=== PATIENT | female | born 1955 | race Two or more races ===

== ENCOUNTER 2016-12-02 16:28 | Inpatient (IN) | payer OTHER ==
[2016-12-02 22:40] LABS: SPECIFIC GRAVITY 1.015 (1.001-1.030); URINE BILIRUBIN NEGATIVE (NEGATIVE); URINE BLOOD NEGATIVE (NEGATIVE); URINE GLUCOSE (UA) NEGATIVE (NEGATIVE); URINE LEUKOCYTE ESTERASE NEGATIVE (NEGATIVE); URINE NITRITE NEGATIVE (NEGATIVE); URINE PROTEIN TRACE (NEGATIVE); URINE UROBILINOGEN NORMAL (0-1 mg/dl)
[2016-12-02 22:44] LABS: URINE APPEARANCE CLEAR; URINE COLOR AMBER
[2016-12-02] MEDS ORDERED: KETOROLAC TROMETHAMINE 60 MG/2 ML VIAL ONE (23:25)
[2016-12-03] MEDS ORDERED: SODIUM CHLORIDE 0.9% 500 ML ONE (00:10)
[2016-12-03] MEDS ORDERED: ACETAMINOPHEN 500 MG TABLET ONE (01:07)
[2016-12-03 01:13] LABS: ABSOLUTE NEUTROPHIL COUNT 3.5 K/mm3 (1.8-7.7); BASO % 0.4 % (0.2-1.0); HEMATOCRIT 21.3 % (37.0-47.0); IMM NEUT% 0.7 % (0-1); LYMPH # 0.8 (1.0-4.8); LYMPH % 17.2 % (15-45); MEAN CORPUSCULAR HEMOGLOBIN 22.2 pg (27.0-31.0); MEAN CORPUSCULAR HGB CONC 29.6 g/dl (33.0-37.0); MONO # 0.2 (0.0-0.8); MONO % 3.5 % (4-12); NEUT % 78.2 % (43-75); PLATELET COUNT 200 K/mm3 (130-400); RED CELL DISTRIBUTION WIDTH 15.2 % (11.5-14.5)
[2016-12-03 01:15] LABS: HEMOGLOBIN 6.3 gm/l (12.0-16.0)
[2016-12-03 01:21] LABS: ALB/GLOB RATIO 0.7 (>1.0); CALCIUM 8.6 mg/dL (8.6-10.3)
[2016-12-03 02:08] LABS: ANISOCYTOSIS 1+; HYPOCHROMIA 2+; PLATELET ESTIMATE NORMAL (NORMAL)
[2016-12-03] MEDS ORDERED: IOPAMIDOL 370 (76%) IV.SOLN 150 ML IV ONE (02:44)
[2016-12-03] MEDS ORDERED: TAZOBACTAM IV ONE (02:51)
[2016-12-03] MEDS ORDERED: PIPERACILLIN IV ONE (02:51)
[2016-12-03] MEDS ORDERED: SODIUM CHLORIDE 0.9% 100 ML IV PRN (04:09)
[2016-12-03] MEDS ORDERED: MENTHOL/CETYLPYRD 1 EACH LOZENGE PO PRN (04:09)
[2016-12-03] MEDS ORDERED: BISACODYL 10 MG SUP PR PRN (04:09)
[2016-12-03] MEDS ORDERED: BISACODYL 5 MG TABLET.EC PO PRN (04:09)
[2016-12-03] MEDS ORDERED: BLISTEX LIPSTICK 1 EACH TP PRN (04:09)
[2016-12-03] MEDS ORDERED: SODIUM CHLORIDE 0.9% 500 ML IV PRN (04:09)
[2016-12-03 04:13] VITALS: BMI 52.1
[2016-12-03] MEDS ORDERED: BLOOD Y PLUMSET W/CASSETTE ONE ×2 (04:33→08:22)
[2016-12-03] MEDS ORDERED: PANTOPRAZOLE SODIUM 40 MG VIAL IV SCH (05:00)
[2016-12-03] MEDS: ONDANSETRON 4 MG/2ML 2 ML VIAL IV PRN ×2 (05:09→15:20)
--- NOTE | 2016-12-03 08:01 | RAD ---
EXAMINATION : CHEST-AP BEDSIDE HISTORY: Weakness. COMPARISONS: 06/09/2014 FINDINGS: There is borderline cardiomegaly. After chronic change of the thoracic aorta is noted. There is mild ectasia. Lungs are clear. No gross effusion is identified. Spondylosis changes of the thoracic spine are noted. A right approach vascular catheter is evident. The distal aspect overlies the superior vena cava shadow. There is no visible pneumothorax. IMPRESSION: No acute cardiopulmonary process is appreciated. There is cardiomegaly without evidence of congestive failure or gross infiltrate.
[2016-12-03] MEDS: DOCUSATE SODIUM 100 MG CAPSULE PO SCH ×2 (09:18→20:50)
--- NOTE | 2016-12-03 10:00 | CT ---
Examination: Noncontrast CT scan of the lumbar spine. Clinical indication: Back pain. Comparisons: None Technique: A [employer] [address] scanner was utilized. Axial images were acquired from the T12 vertebra to S2. Stacked 3 mm axial images were reviewed. Sagittal and coronal reconstructed images were acquired and reviewed as well. Additional 3 mm reconstructed images were acquired with additional post processing angled to the plane of the intervertebral discs of the lumbar spine. Findings: Examination is resolution diminished due to patient body habitus and motion artifact. Subtle abnormalities may not be demonstrated optimally. If central stenosis or neural encroachment remains a concern, MRI examination may be beneficial. Sagittal reconstructed images reveal: There is grossly normal alignment of the lumbar vertebra. The vertebral body heights are maintained. Moderate facet arthropathy involves the lower lumbar segments and is most pronounced at L4-5 and L5-S1. Axial images reveal: At T12-L1: There is a disc bulge suggested at this segment. Facet hypertrophy is noted. No gross encroachment is appreciated. At L1-L2: There is a disc bulge suggested at this segment. Central stenosis cannot be excluded. Neural encroachment is also suspected bilaterally. At L2-L3: There is facet and ligamentum flavum hypertrophy at this level with a diffuse disc bulge suggested. Central stenosis is suspected there is possible left neural encroachment. At L3-L4: There is facet and ligament flavum hypertrophy at this level. There is a diffuse disc bulge with suspected central stenosis. Bilateral neural encroachment is suspected. At L4-L5: There is moderate facet hypertrophy at this segment with a diffuse disc bulge. Central stenosis is suspected. Bilateral neural encroachment is also suspected as well. At L5-S1: Moderate facet arthropathy involves this level. There is possible left neural encroachment. Central stenosis cannot be excluded. Paraspinous soft tissues: After chronic plaquing of the abdominal aorta is noted. No gross lesions are identified in the visualized lung bases. IMPRESSION: 1. Resolution limited examination due to technical and body habitus factors as described above. There are multiple levels of suspected stenosis and neural encroachment. If warranted, MRI examination should be considered. There is considerable facet arthropathy at the lower lumbar segments as well. 2. Atherosclerosis.
[2016-12-03] MEDS: ACETAMINOPHEN 325 MG TABLET PO PRN ×2 (11:29→20:52)
[2016-12-03] MEDS: PANTOPRAZOLE SODIUM 40 MG VIAL IV SCH (11:29)
[2016-12-03] MEDS ORDERED: LACTATED RINGERS 500 ML IV ONE (11:58)
[2016-12-03] MEDS ORDERED: PUMP TUBING ONE (11:58)
[2016-12-03] MEDS ORDERED: LACTATED RINGERS 1,000 ML IV SCH (12:00)
--- NOTE | 2016-12-03 12:51 | CT ---
EXAMINATION: Contrast enhanced CT scan of the abdomen and pelvis. CLINICAL INDICATION: Patient with a history of colonic fistula and fever. COMPARISON: Prior examination dated 04/26/2016 TECHNIQUE: Oral contrast: Administered Following uneventful administration of 125 mL of Isovue 370, intravenously axial images were acquired from just above the domes of the diaphragm to the iliac crest. A CT scan of the pelvis was also obtained from the iliac crest to the initial tuberosities. Stacked axial, sagittal, and coronal images were reviewed. Findings: Abdomen CT: (Contrast-enhanced): There is mild to moderate bibasilar atelectasis. No consolidation or mass is identified. There is no pleural effusion. The liver exhibits diminished attenuation throughout compatible with fatty infiltration. No discrete lesion is identified. Hemostatic clips closely abutting the capsular margin of the right lobe of liver within the transversalis fascia is noted. Patient status post cholecystectomy. There is no evidence of biliary obstruction. The spleen size and attenuation are within normal limits. The pancreas is normal in size and contours. No inflammatory stranding is identified. The pancreatic duct is unremarkable. The adrenals are unremarkable. The kidneys are without mass or hydronephrosis. There is a retroaortic left renal vein. Mild atherosclerotic plaquing of the abdominal aorta is present. There is no aneurysmal dilatation. The stomach is unremarkable. The visualized segments of small and large bowel are within normal limits. Spondylosis changes of the lumbar spine are noted. No gross osteolytic or blastic lesions are identified. Pelvic CT: (Contrast -enhanced): Disruption of the anterior abdominal/pelvic soft tissues is again noted. Bowel contrast is again noted within the ventral ostomy. There is no evidence of bowel obstruction. No incarceration is identified. The uterus is unremarkable. There are no adnexal masses. The bladder contours are within normal limits. No distal ureteral dilatation is identified. No adenopathy is appreciated. After chronic changes of the iliac vessels are noted. There is no aneurysmal dilatation. No free air or free fluid is identified. No colonic wall thickening or irregularity is detected. Spondylosis changes lumbar spine are noted. There is moderate facet arthropathy at multiple segments. IMPRESSION: Resolution limited examination due to patient body habitus. 1. Stable findings of what appears to be a midline ventral ostomy. There is adjacent soft tissue changes suggesting healing by secondary intent. There is no evidence of bowel obstruction. No discrete fistula is appreciated. 2. Bibasilar atelectasis. 3. Fatty filtration liver. 4. Prior cholecystectomy. 5. Atherosclerosis. 6. Retroaortic left renal vein. 7. Spondylosis changes lumbar spine.
[2016-12-03] MEDS: ENOXAPARIN SODIUM 40 MG/0.4 ML SYRINGE SUB-Q SCH (13:14)
[2016-12-03 14:26] LABS: ABSOLUTE NEUTROPHIL COUNT 2.7 K/mm3 (1.8-7.7); BASO % 0.6 % (0.2-1.0); HEMATOCRIT 28.7 % (37.0-47.0); HEMOGLOBIN 8.7 gm/l (12.0-16.0); IMM NEUT% 0.9 % (0-1); LYMPH # 0.6 (1.0-4.8); LYMPH % 17.5 % (15-45); MEAN CELL VOLUME 77.6 fl (81.0-99.0); MEAN CORPUSCULAR HEMOGLOBIN 23.5 pg (27.0-31.0); MEAN CORPUSCULAR HGB CONC 30.3 g/dl (33.0-37.0); MEAN PLATELET VOLUME 10.1 fl (7.4-10.4); MONO % 0.9 % (4-12); NEUT % 80.1 % (43-75); PLATELET COUNT 175 K/mm3 (130-400); RED CELL DISTRIBUTION WIDTH 15.9 % (11.5-14.5)
--- NOTE | 2016-12-03 14:43 | HP ---
FLAKO MENDOZA [id number] DATE OF ADMISSION: December 03, 2016 CHIEF COMPLAINT: Low back pain. HISTORY OF PRESENT ILLNESS: The patient is a 61-year-old female with a complex medical history who presented to the [facility] Emergency Department with complaints of severe low back pain symptoms. She has had similar back pain problems in the past but it has been many months since she has had problems. She also complained of feeling shaky in the emergency department and after she was treated for back pain and about to be discharged, she was found to have a fever up to 101 degrees which prompted further workup. She was found to be anemic with a hemoglobin of 6.3 associated with microcytosis. With the unexplained fever and microcytic anemia, she was referred to the hospitalist service for observation. Cultures of her blood were obtained from peripheral venous source and another blood culture was drawn from a tunneling Portacath which she has had in the right subclavian for about four months now. REVIEW OF SYSTEMS: On review of systems, she has not noticed any fever or chills at home. She denies any recent upper respiratory symptoms. She has had no cough, dyspnea, wheezing, chest pain or palpitations. No lower extremity edema. She has chronic abdominal pain. She has a chronic decreased appetite. She has had no vomiting and no diarrhea or constipation. 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 She denies any headaches, fainting, blackouts or seizures. She denies any urinary complaints. Review of systems is otherwise negative. PAST MEDICAL HISTORY: Is very complicated. 1. She has a history of diabetes on oral therapy. 2. She has a history of hypertension on antihypertensive therapy. 3. She has never had any prior history of any coronary artery disease. 4. She has had a history of recent prolonged hospitalization at [facility] for a complicated ventral hernia with an enterocutaneous fistula. She left [facility] some time in October. 5. She is on home total parenteral nutrition therapy via a tunneling Portacath in her right subclavian. 6. She has morbid obesity but no history of sleep apnea. 7. She has had hyperlipidemia on statin therapy but no history of coronary artery disease. 8. She has a remote history of a pulmonary embolism in March of 2003. She is no longer on any anticoagulant therapy. PAST SURGICAL HISTORY: Is significant for: 1. Recurrent incisional hernia. She originally had an incarcerated inguinal hernia repair done at [facility] in June of the year 1999. Prior to that she had had an umbilical hernia repair done approximately 1994. 2. In February of 2003, she presented with recurrent incisional hernia which was found to be massive and was repaired at that time with a 25 x 32 cm mesh. 3. Then in February of 2015 she was hospitalized for an incarcerated recurrent incisional hernia with bowel obstruction. She had removal of the mesh performed and lysis of adhesions and placement of a wound VAC. 4. She also had an open cholecystectomy performed at the same time by Dr. Ortiz. The surgery never completely healed properly, and she had persistent hernia defect despite the surgery done here in February of 2015. 5. She subsequently underwent a ventral hernia repair again. This time at [facility] in July,. She was then readmitted between July 19, 2016 and November 05, 2016 with complications of an enterocutaneous fistula. She was discharged with complex wound management and home total parenteral nutrition which she has been receiving and had skin grafts also placed to heal the wound defect. She had a small bowel resection with primary anastomosis along with an appendectomy sometime during her prolonged stay at [facility]. Awaiting discharge summary at this time. 6. She had a Portacath placed in the right subclavian some time during that stay as well for the home total parental nutrition. ALLERGIES: NO KNOWN DRUG ALLERGIES. CURRENT MEDICATIONS: Obtained from [facility] include: 1. Cozaar 50 mg daily. 2. Lipitor 20 mg daily. 3. Oxycodone 5 to 10 mg every four hours. She generally takes two or less a day. 4. Metformin 850 mg twice daily with meals. 5. Toprol XL 100 mg twice daily. FAMILY HISTORY: Remarkable for a mother who at childbirth. Her father in an accident. SOCIAL HISTORY: She has never used tobacco. Denies alcohol use. She is . She has three children. She is receiving Home Health services for her total parental nutrition and wound care. Her primary care provider is [facility]. PHYSICAL EXAMINATION: VITAL SIGNS: Her vitals showed initially a temperature up to 101.1, pulse 107, blood pressure 105/46, respirations 16, oxygen saturation 99% on 2 liters. Body mass index is 52. Her weight is 137.8 kilograms. GENERAL: This is a morbidly obese female in no acute distress. HEENT: Exam is unremarkable. NECK: Is supple without lymphadenopathy or thyromegaly. CHEST: Lungs are clear to auscultation bilaterally. CARDIOVASCULAR: Exam reveals a regular tachycardia without a murmur. ABDOMEN: Is obese, soft, nontender, nondistended with positive bowel sounds. She has a midline wound covered with sterile dressing and an ostomy appliance at the midline for her fistula. Active bowel sounds are noted. No rebound or guarding. No induration is present and no erythema. EXTREMITIES: Lower extremities show no peripheral edema. Rudy's sign is negative bilaterally. SKIN: Warm, dry and intact. DIAGNOSTIC IMAGING STUDIES: Included: 1. Chest x-ray showing no acute cardiopulmonary abnormality. 2. She had an x-ray of the lumbar spine which showed multiple levels of suspected stenosis and neural encroachment but a limited exam due to her body habitus. 3. No abdominal imaging was performed in the emergency department. LABORATORY STUDIES: Showed a CBC with a white count of 4.5, hemoglobin of 6.3, hematocrit 21.3, mean corpuscular volume 75, platelet count 200,000. Lactate initially was 1.5. Chemistry profile showed a sodium of 138, potassium 4.5, carbon dioxide 25, BUN 34, creatinine 1.3, glucose 126. Liver function tests are normal, albumin is 3.0, globulin 4.1, lipase is 17. Urinalysis was unremarkable. ASSESSMENT: 1. Patient has a fever of unknown origin. 2. She has a significant anemia consistent with chronic blood loss consistent with iron deficiency. 3. She has low back pain due to degenerative disc disease. 4. She has a chronic enterocutaneous fistula and a chronic indwelling Portacath as potential sources for infection. 5. She has morbid obesity which complicates her care. 6. Diabetes which complicates her care. 7. She has a history of chronic essential hypertension, however her blood pressure at this time are low. 8. She has mild tachycardia. PLAN: 1. She is placed under observation. 2. She will be transfused two units of packed red blood cells. 3. Cultures of the blood have been obtained times two. 4. I am holding off empiric antibiotic treatment until we can better identify a potential source for infection. 5. If she is having persistent fevers, we may have to arrange for removal of her Portacath and culturing of the tip. 6. I plan to do a CT of the abdomen and pelvis with contrast to better search for potential sources of fever. 7. She will be gently hydrated. 8. I plan to continue her total parenteral nutrition every evening. She usually starts it from 9 until 1 in the afternoon, and her will be bring that in today. 9. We will try and get records from [facility]. 10. Should she show any significant intraabdominal pathology, we may need to transfer her back to [facility]. 11. For her diabetes, she will be managed with sliding scale NovoLog. 12. Venous thromboembolism risk is low considering her observation status but moderate considering her prior history of a pulmonary embolism, so I am going to put her on prophylactic doses of Lovenox. 13. Further treatment and recommendations will depend on her hospital course. cc: Essie Falcon, [facility]
[2016-12-03] MEDS: Heparin Sodium Flush 50 unit/5 ml syringe IV PRN (20:49)
[2016-12-03] MEDS ORDERED: [UNRECOGNIZED DRUG - NUTRITION] IV SCH (21:00)
[2016-12-03] MEDS: OXYCODONE HCL 5 MG TABLET PO PRN (23:26)
[2016-12-04] MEDS ORDERED: CEFTRIAXONE 1 GRAM DUPLEX 50 ML IV ONE (03:32)
[2016-12-04] MEDS: CEFTRIAXONE 1 GRAM DUPLEX 1 G in Premix (D5W) 50 ml 1 EACH IV SCH (03:39)
[2016-12-04 05:38] LABS: ABSOLUTE NEUTROPHIL COUNT 2.3 K/mm3 (1.8-7.7); BASO % 0.4 % (0.2-1.0); HEMATOCRIT 23.6 % (37.0-47.0); HEMOGLOBIN 7.1 gm/l (12.0-16.0); IMM NEUT% 0.7 % (0-1); LYMPH # 0.5 (1.0-4.8); LYMPH % 17.9 % (15-45); MEAN CELL VOLUME 78.7 fl (81.0-99.0); MEAN CORPUSCULAR HEMOGLOBIN 23.7 pg (27.0-31.0); MEAN CORPUSCULAR HGB CONC 30.1 g/dl (33.0-37.0); MEAN PLATELET VOLUME 10.2 fl (7.4-10.4); MONO % 0.7 % (4-12); NEUT % 80.3 % (43-75); PLATELET COUNT 135 K/mm3 (130-400); RED CELL DISTRIBUTION WIDTH 15.9 % (11.5-14.5)
[2016-12-04 05:56] LABS: CALCIUM 7.9 mg/dL (8.6-10.3)
[2016-12-04 07:11] LABS: BAND 14 % (0-10); BASOPHIL 1 % (0-1); EOSINOPHIL 0 % (1-3); LYMPHOCYTE 17 % (15-45); MONOCYTE 0 % (4-12); NEUTROPHILS 68 % (43-75); PLATELET ESTIMATE NORMAL (NORMAL); TOTAL CELLS COUNTED 100
[2016-12-04] MEDS: DOCUSATE SODIUM 100 MG CAPSULE PO SCH ×2 (09:40→23:50)
[2016-12-04] MEDS: MAGNESIUM HYDROXIDE 30 ML UDCUP PO PRN (09:40)
[2016-12-04] MEDS ORDERED: SODIUM CHLORIDE 0.9% 500 ML IV PRN (12:13)
[2016-12-04] MEDS: INSULIN ASPART (DOSE) 100 UNITS/1 ML SUB-Q PRN (12:19)
--- NOTE | 2016-12-04 12:36 | PDOC43 ---
- Subjective Chief Complaint: Fever Patient c/o some headache. Otherwise, is feeling a little bit better. She reports prior removal of IV cath x 2 in the past due to infection, having seen Dr Zhou. - Objective Vital Signs Temperature 99.1 F 12/04/16 07:33 Pulse Rate 104 12/04/16 07:33 Respiratory Rate 26 12/04/16 07:33 Blood Pressure 107/57 12/04/16 07:33 O2 Saturation by Pulse Oximetry 95 12/04/16 07:33 Oxygen Delivery Method Room Air Oxygen Flow Rate 0 Vital Signs Last 12 Hours Temp Pulse Resp BP Pulse Ox 12/04/16 07:33 99.1 F 104 26 107/57 95 12/04/16 07:30 26 95 12/04/16 03:52 22 12/04/16 03:46 100.1 F 113 22 104/59 92 12/04/16 03:45 99 12/04/16 00:15 101.9 F 115 20 98 Intake and Output 12/02/16 12/03/16 12/04/16 23:59 23:59 23:59 Intake Total 4234 275 Output Total 2630 1225 Balance 1604 -950 General: Alert, Cooperative, No Acute Distress Lungs: Clear to Auscultation Bilaterally, Normal Air Movement Cardiovascular: Regular Rate and Rhythm Abdomen: Soft, Other (large ostomy bag, draining from enterocutaneous fistula.) Extremities: No Edema Cath in R upper shoulder. Pt points to R arm and R side of neck as prior (PICC? ) sites. Laboratory 12/04/16 05:15 12/04/16 05:15 12/04/16 12/04/16 12/03/16 07:30 05:15 20:45 RBC 3.00 L MCV 78.7 L MCH 23.7 L MCHC 30.1 L RDW 15.9 H BUN 31 H Estimated GFR 38 L POC Capillary Glucose 144 H 109 H Calcium 7.9 L 12/03/16 12/03/16 16:20 14:15 RBC 3.70 L MCV 77.6 L MCH 23.5 L MCHC 30.3 L RDW 15.9 H BUN Estimated GFR POC Capillary Glucose 122 H Calcium Current Medications: Current meds reviewed in EMR. Active Medications Endocrine Insulin Aspart (Novolog (Dose)) 0 units SUB-Q WM/BEDTIME PRN; Protocol PRN Reason: Blood Sugar > FEN Total Parenteral Nutrition (Total Parenteral) 2,240 mls @ 140 mls/hr IV DAILY@ 2100 [place] PRN Reason: Per Protocol Last Admin: 12/03/16 22:14 Dose: 140 mls/hr Sodium Chloride (Sodium Chloride 0.9%) 500 mls @ 25 mls/hr IV .Q20H PRN PRN Reason: Blood Transfusion Last Admin: 12/03/16 04:39 Dose: 25 mls/hr Sodium Chloride (Sodium Chloride 0.9%) 100 mls @ 25 mls/hr IV PRN PRN PRN Reason: Flush GI Pantoprazole Sodium (Protonix) 40 mg IV DAILY@1200 [place] Last Admin: 12/03/16 11:29 Dose: 40 mg Docusate Sodium (Colace) 100 mg PO BID [facility] Last Admin: 12/04/16 09:40 Dose: 100 mg ID Ceftriaxone Sodium/Dextrose 1 (g/ Premix (D5W) 50 ml) 50 mls @ 100 mls/hr IV DAILY@0600 [facility] Last Admin: 12/04/16 03:39 Dose: 100 mls/hr Pain Oxycodone HCl (Roxicodone) 5 - 10 mg PO Q3H PRN PRN Reason: Pain Last Admin: 12/03/16 23:26 Dose: 10 mg PRN Acetaminophen (Tylenol) 650 mg PO Q6H PRN PRN Reason: Pain or Temperature > 100.5 F Last Admin: 12/03/16 20:52 Dose: 650 mg Benzocaine/Menthol (Cepacol) 1 each PO PRN PRN PRN Reason: Sore Throat Bisacodyl (Dulcolax) 10 mg [place] DAILY PRN PRN Reason: Constipation Bisacodyl (Dulcolax) 5 mg PO DAILY PRN PRN Reason: Constipation Magnesium Hydroxide (Milk Of Magnesia) 30 ml PO DAILY PRN PRN Reason: Constipation Last Admin: 12/04/16 09:40 Dose: 30 ml Ondansetron HCl (Zofran) 4 mg IV Q4H PRN PRN Reason: Nausea/Vomiting Last Admin: 12/03/16 15:20 Dose: 4 mg Petrolatum/Paraffin/Mineral Oil (Blistex) 1 each TP PRN PRN PRN Reason: Dry and/or chapped lips VTE Enoxaparin Sodium (Lovenox) 40 mg SUB-Q Q24H [facility] Last Admin: 12/03/16 13:14 Dose: 40 mg - Problems: Assessment/Plan (1) Fever Qualifiers: Fever type: due to other condition Qualifier Code: (R50.81) Fever presenting with conditions classified elsewhere Status: AcuteAssessment/Plan : Fever with Sepsis, organism appears to be GNR obtained on blood culture, possibly from portacath. Blood culture + from Cath, neg so far from peripheral source. Started on Rocephin 12/04 (2) Diabetes Qualifiers: Diabetes mellitus type: type 2 Diabetes mellitus complication status: with hyperglycemia Status: AcuteAssessment/Plan: BG 102-144. Continue tx, on SS, CBGs. (3) Anemia Status: AcuteAssessment/Plan: Marked microcytic anemia, low WBC noted, suspect acute on chronic illness. S/P PRBC x 2 units, plan add'l unit today Labs: Laboratory Tests 12/04/16 05:15 WBC 2.9 L Hgb 7.1 L MCV 78.7 L Plt Count 135 Band Neutrophils % 14 H (4) Enterocutaneous fistula Status: AcuteAssessment/Plan: Contributing to electrolytes, on TPN. (5) Obesity Qualifiers: Obesity type: unspecified obesity type Obesity severity: morbid Qualifier Code: (E66.01) Morbid (severe) obesity due to excess calories Status: ChronicAssessment/Plan: BMI 53 (6) Acute kidney injury superimposed on chronic kidney disease Status: AcuteAssessment/Plan: Acute kidney injury from sepsis, on CKD 3 from DM. Continue IVF. (7) Low back pain Qualifiers: Chronicity: chronic Back pain laterality: unspecified Sciatica presence: unspecified whether sciatica present Qualifier Code: (M54.5) Low back pain Status: AcuteAssessment/Plan: Chronic hx. VTE Prophylaxis: Lovenox Disposition: Will need to check with DR Zhou at [facility] about further care rec's. addendum: Spoke with Dr Raphael at [facility] Suggested removal of cath Suggested consider replacement after a 1-3 days to clear Not necessarily needing to transfer at this time. Spoke with Dr Boyle, will see her later today about removal, consider for PICC line placement late this week Plan stop TPN for now, will given (increased) fluid replacement - D5 1/2NS with 20 mEq at 200 ml/hr
[2016-12-04] MEDS ORDERED: LACTULOSE 20 G/30 ML UDCUP PO PRN (12:54)
[2016-12-04] MEDS: PANTOPRAZOLE SODIUM 40 MG VIAL IV SCH (13:09)
[2016-12-04] MEDS: ENOXAPARIN SODIUM 40 MG/0.4 ML SYRINGE SUB-Q SCH (13:09)
[2016-12-04] MEDS: Heparin Sodium Flush 50 unit/5 ml syringe IV PRN (13:19)
[2016-12-04] MEDS: IBUPROFEN 200 MG TABLET PO PRN ×2 (13:31→23:42)
[2016-12-04] MEDS ORDERED: BLOOD Y PLUMSET W/CASSETTE ONE (13:34)
[2016-12-04] MEDS: ACETAMINOPHEN 325 MG TABLET PO PRN (15:07)
[2016-12-04] MEDS ORDERED: PUMP TUBING ONE (16:58)
[2016-12-04] MEDS: D5 1/2NS with 20 mEq KCL 1,000 ML IV SCH ×3 (17:07→23:37)
[2016-12-04] MEDS: MULTIVITAMINS 10 ML in SODIUM CHLORIDE 0.9% 1,000 ML IV SCH (17:09)
[2016-12-04] MEDS ORDERED: LIDOCAINE 1% (PRES FREE) 30 ML VIAL ONE (18:14)
[2016-12-04] MEDS ORDERED: BUPIVACAINE 0.5% W/EPI SDV 30 ML VIAL ONE (18:14)
[2016-12-04 18:33] LABS: INR 1.37; PROTHROMBIN TIME 14.6 SECONDS (9.3-11.4)
[2016-12-04] MEDS ORDERED: MIDAZOLAM HCL 5 MG/5 ML VIAL ONE (19:03)
[2016-12-04] MEDS ORDERED: PROPOFOL 20 ML IV ONE (19:41)
[2016-12-04] MEDS ORDERED: FAMOTIDINE 10 MG/ML 2ML VIAL ONE (19:41)
[2016-12-04] MEDS ORDERED: METOCLOPRAMIDE HCL 5 MG/ML 2ML VIAL ONE (19:41)
--- NOTE | 2016-12-04 20:07 | PCMON ---
Date of Procedure: 12/04/16 Start Time: 7:20 pm Preoperative Diagnosis: 1. Infection tunnelled central line Postoperative Diagnosis: 1. same Surgeon: Walt Boyle MD Assist:none Anesthesia: Procedural sedation with local anaesthetic Condition: Infected central line Complications: none Estimated Blood Loss: 10 mLs Specimens: Central line to pathology for identification and culture Findings: Infected central line - tunnelled line Detailed Operative Procedure: The site was prepared and local anesthetic was infiltrated in the region of the central line. The cuff was identified along the line and the subcutaneous tissue was gently from the line cuff with precise dissection. Once the central line was freed it was removed and pressure was applied to the subclavian region x 5 m. The site was steri- stripped and a pressure dressing was applied to the site. The patient had no complications identified and was transferred back to ICU in stable condition.
[2016-12-04] MEDS ORDERED: OXYCODONE HCL 5 MG TABLET PO PRN (20:15)
--- NOTE | 2016-12-04 21:01 | CONS ---
FLAKO MATTA : 1955 DATE OF CONSULTATION: December 04, 2016 REQUESTING PHYSICIAN: Internal medicine physician. HISTORY OF PRESENT ILLNESS: I had the pleasure of seeing Ms. Matta in the intensive care unit today at [facility]. She is a 61-year-old female with a very complex abdominal wall hernia and enterocutaneous fistula situation. She recently presented to [facility] with worsening abdominal pain and difficulty with bowel movements times two days. While admitted to [facility], Ms. Matta developed fevers and showed evidence of low grade sepsis. Ms. Matta is total parental nutrition dependent. She eats approximately 30% of her nutritional intake via oral diet. As mentioned previously she has a very complex abdominal wall situation with multiple issues related initially to a section multiple years ago resulting in incisional hernia. She had multiple hernia repairs with mesh and ultimately ended up with enterocutaneous fistula. She is currently being managed by Dr. Zhou from [facility] for complex wound management. Most recently in June or July of last year, she underwent skin graft and small bowel resection with primary anastomosis, appendectomy and ventral repair again with mesh. Unfortunately, she has redeveloped her enterocutaneous fistula again requiring complex wound management. Ms. Matta has had evidence of low grade sepsis. She underwent blood cultures on December 03, 2016. She was identified as having gram negative bacilli seen in both aerobic and anaerobic bottles after one day of incubation from the port bottle draw. Ms. Matta has a tunneled Portacath in the right subclavian region. This is the same port as the positive blood cultures. PHYSICAL EXAMINATION: On physical exam, Ms. Matta is her stated age. Her abdomen is soft, nontender. She certainly has significant obesity. She has an open abdomen with a large bag on the abdominal cavity with ongoing enterocutaneous fistula. She has evidence of what appears to be a VAC over what I presume is granulating skin grafting. Ms. Matta's Portacath site is not reddened. There is no evidence of active infection at the skin site. Of note, Ms. Matta is morbidly obese with a very difficult chest wall exam so she could easily be hiding an infection deep in subcutaneous tissue. Cardiovascular exam was difficult to do again due to her body habitus. She had certainly decreased air entry bilaterally to both lung bases. Normal cardiovascular exam with normal heart rate. LABORATORY: Ms. Matta's lab results reveal a white count of 2.9 on December 04, 2016, previously in the 4.5 to 3.4 range. She also has evidence of anemia with initial presentation hemoglobin of 6.3 requiring blood transfusions. Most recently early this morning it was at 7.1. She is getting an additional unit of blood at this point. She has evidence of a left shift with elevated neutrophils. She has a normal INR of 1.3 and a PTT of 14.6. She has an elevated creatinine at 1.4 and an elevated glucose at 120. ASSESSMENT: I had a long discussion today with Ms. Matta. I reviewed the probability of a line sepsis based on the positive culture and the indwelling intravenous with potential ongoing intraabdominal sepsis related to her enterocutaneous fistula. Internal medicine previously discussed this case with Dr. Zhou's covering surgeon at [facility]. We discussed removal of the Portacath due to line infection and sepsis. The risks and benefits of surgery were explained to Ms. Matta. She agreed to proceed with surgery and informed consent was obtained. I specifically discussed the need to remove the Portacath, continue with IV antibiotics for a number of days and then have a reposition of a PICC if IV access is essential for total parenteral nutrition. I discussed the risks and benefits of surgery including local sedation and anesthetic. I also discussed the risk of Portacath removal including catheter breakage as well as ongoing infection and postoperative bleeding. Ms. Matta understood the risks and benefits of the surgery and again wishes to proceed with informed consent.
[2016-12-05] MEDS: ONDANSETRON 4 MG/2ML 2 ML VIAL IV PRN (03:18)
[2016-12-05] MEDS: CEFTRIAXONE 1 GRAM DUPLEX 1 G in Premix (D5W) 50 ml 1 EACH IV SCH (05:23)
[2016-12-05] MEDS: D5 1/2NS with 20 mEq KCL 1,000 ML IV SCH ×6 (05:29→23:30)
[2016-12-05 06:16] LABS: ABSOLUTE NEUTROPHIL COUNT 1.9 K/mm3 (1.8-7.7); BASO % 0.7 % (0.2-1.0); EOS % 0.4 % (0.9-2.9); HEMATOCRIT 26.9 % (37.0-47.0); IMM NEUT% 0.4 % (0-1); LYMPH # 0.7 (1.0-4.8); MEAN CELL VOLUME 80.3 fl (81.0-99.0); MEAN CORPUSCULAR HEMOGLOBIN 23.9 pg (27.0-31.0); MEAN CORPUSCULAR HGB CONC 29.7 g/dl (33.0-37.0); MEAN PLATELET VOLUME 11.3 fl (7.4-10.4); MONO # 0.1 (0.0-0.8); NEUT % 68.5 % (43-75); PLATELET COUNT 95 K/mm3 (130-400); RED CELL DISTRIBUTION WIDTH 16.8 % (11.5-14.5)
[2016-12-05 06:38] LABS: ALB/GLOB RATIO 0.6 (>1.0); ALBUMIN 2.4 gm/dL (3.5-5.7); CALCIUM 8.1 mg/dL (8.6-10.3)
[2016-12-05 06:40] LABS: C-REACTIVE PROTEIN 17.3 mg/dl (<1.0)
[2016-12-05 07:13] LABS: ATYPICAL LYMPHOCYTE 2 %; BAND 17 % (0-10); BASOPHIL 3 % (0-1); EOSINOPHIL 1 % (1-3); LYMPHOCYTE 30 % (15-45); MONOCYTE 2 % (4-12); NEUTROPHILS 45 % (43-75); NUCLEATED RED BLOOD CELL 1 /100 WBC; TOTAL CELLS COUNTED 100
[2016-12-05 07:14] LABS: ANISOCYTOSIS 1+; HYPOCHROMIA 1+; PLATELET ESTIMATE DECREASED (NORMAL)
[2016-12-05] MEDS: IBUPROFEN 200 MG TABLET PO PRN (08:06)
--- NOTE | 2016-12-05 08:45 | PDOC43 ---
- Subjective Chief Complaint: Fever Patient reports feeling a little better. Still some headache, ibuprofen not so helpful yesterday. No respiratory c/o. No new GI c/o, was going to stop by for changing ostomy/fistula bag. Would like to get up to walk. No new c/o today. Off TPN now that Port removed, pt tolerated procedure well. Did get enema yesterday, but still some feeling of constipation. - Objective Vital Signs Temperature 98.6 F 12/05/16 07:00 Pulse Rate 92 12/05/16 07:00 Respiratory Rate 16 12/05/16 07:00 Blood Pressure 124/56 12/05/16 07:00 O2 Saturation by Pulse Oximetry 92 12/05/16 07:00 Oxygen Delivery Method Room Air Oxygen Flow Rate 0 Intake and Output 12/03/16 12/04/16 12/05/16 23:59 23:59 23:59 Intake Total 4234 1679 2243 Output Total 2630 2925 1750 Balance 1604 -1246 493 General: Alert, Cooperative, No Acute Distress HEENT: Atraumatic Lungs: Clear to Auscultation Bilaterally, Normal Air Movement Cardiovascular: Regular Rate and Rhythm, No Murmur Abdomen: Other (large ostomy/fistula bag, with secretions.) Skin: Normal Color Wound: Other (ongoing enterocutaneous fistula) Neurological: Normal Speech Psych/Mental Status: Normal Affect Laboratory 12/05/16 05:30 12/05/16 05:30 12/05/16 12/05/16 12/04/16 05:30 03:03 21:48 RBC 3.35 L MCV 80.3 L MCH 23.9 L MCHC 29.7 L RDW 16.8 H ESR 54 H PT Anion Gap 7 L Estimated GFR 51 L POC Capillary Glucose 191 H 131 H Calcium 8.1 L Total Bilirubin 1.5 H AST 63 H Alkaline Phosphatase 135 H C-Reactive Protein 17.3 H Total Protein 6.1 L Albumin 2.4 L Globulin 3.7 H Albumin/Globulin Ratio 0.6 L 12/04/16 12/04/16 12/04/16 17:37 17:25 11:56 RBC MCV MCH MCHC RDW ESR PT 14.6 H Anion Gap Estimated GFR POC Capillary Glucose 120 H 168 H Calcium Total Bilirubin AST Alkaline Phosphatase C-Reactive Protein Total Protein Albumin Globulin Albumin/Globulin Ratio Current Medications: Current meds reviewed in EMR. - Problems: Assessment/Plan (1) Fever Qualifiers: Fever type: due to other condition Qualifier Code: (R50.81) Fever presenting with conditions classified elsewhere Status: AcuteAssessment/Plan : Fever with Sepsis, organism appears to be GNR obtained on blood culture, suspected from portacath (removed 12/04). Blood culture + from Cath, neg so far from peripheral source. Started on Rocephin for GNR 12/04; culture still pending as of 12/05. With development of abnormally low platelets, consider for severe sepsis, checked lactate- 1.1 (not elevated) this am. Continue monitor i/O (2) Diabetes Qualifiers: Diabetes mellitus type: type 2 Diabetes mellitus complication status: with hyperglycemia Status: AcuteAssessment/Plan: BG 120-191; is on D5. Continue tx, on SS, CBGs. (3) Anemia Qualifiers: Anemia type: other cause Status: AcuteAssessment/Plan: Marked microcytic anemia, low WBC noted, suspect acute on chronic illness. S/P PRBC x 3 units, Hb to 8.0 today. Still with low WBC, platelets continue to drop Will consider this representing severe sepsis, so recheck lactate. Will also hold enoxaparin, recheck in am. with microcytosis, check iron studies. (4) Enterocutaneous fistula Status: AcuteAssessment/Plan: Contributing to electrolyte abnormality, has been on TPN for prolonged period, but now off. Consider for resumption when PICC line placed in a day or three. (5) Obesity Qualifiers: Obesity type: unspecified obesity type Obesity severity: morbid Qualifier Code: (E66.01) Morbid (severe) obesity due to excess calories Status: ChronicAssessment/Plan: BMI 53, playing a role in several parts of her condition, care. (6) Acute kidney injury superimposed on chronic kidney disease Status: AcuteAssessment/Plan: Acute kidney injury from sepsis, on CKD 3 from DM. Continue IVF. (7) Low back pain Qualifiers: Chronicity: chronic Back pain laterality: unspecified Sciatica presence: unspecified whether sciatica present Qualifier Code: (M54.5) Low back pain Status: AcuteAssessment/Plan: Chronic hx. VTE Prophylaxis: Lovenox being stopped due to low platelets, continue mechanical tx, encourage activity.
[2016-12-05 09:15] LABS: IRON 7 ug/dL (50-212); TOTAL IRON BINDING CAPACITY 375 ug/dL (261-478); TRANSFERRIN 268 mg/dL (203-362)
[2016-12-05] MEDS: INSULIN ASPART (DOSE) 100 UNITS/1 ML SUB-Q PRN ×2 (09:25→17:40)
[2016-12-05] MEDS: DOCUSATE SODIUM 100 MG CAPSULE PO SCH ×2 (11:45→21:04)
[2016-12-05] MEDS: PANTOPRAZOLE SODIUM 40 MG VIAL IV SCH (13:12)
[2016-12-05] MEDS: MULTIVITAMINS 10 ML in SODIUM CHLORIDE 0.9% 1,000 ML IV SCH ×2 (19:16→19:56)
[2016-12-06] MEDS: IBUPROFEN 200 MG TABLET PO PRN (01:07)
[2016-12-06] MEDS: ONDANSETRON 4 MG/2ML 2 ML VIAL IV PRN (03:47)
[2016-12-06] MEDS: D5 1/2NS with 20 mEq KCL 1,000 ML IV SCH ×4 (04:36→23:16)
[2016-12-06 06:05] LABS: ABSOLUTE NEUTROPHIL COUNT 1.9 K/mm3 (1.8-7.7); BASO % 0.6 % (0.2-1.0); EOS # 0.1 (0.0-0.5); EOS % 1.8 % (0.9-2.9); HEMATOCRIT 26.6 % (37.0-47.0); HEMOGLOBIN 7.9 gm/l (12.0-16.0); IMM NEUT% 0.6 % (0-1); LYMPH # 1.1 (1.0-4.8); LYMPH % 33.7 % (15-45); MEAN CELL VOLUME 78.9 fl (81.0-99.0); MEAN CORPUSCULAR HEMOGLOBIN 23.4 pg (27.0-31.0); MEAN CORPUSCULAR HGB CONC 29.7 g/dl (33.0-37.0); MEAN PLATELET VOLUME 10.8 fl (7.4-10.4); MONO # 0.3 (0.0-0.8); MONO % 7.5 % (4-12); NEUT % 55.8 % (43-75); PLATELET COUNT 96 K/mm3 (130-400)
[2016-12-06] MEDS: CEFTRIAXONE 1 GRAM DUPLEX 1 G in Premix (D5W) 50 ml 1 EACH IV SCH (06:06)
[2016-12-06 06:30] LABS: ALB/GLOB RATIO 0.6 (>1.0); ALBUMIN 2.4 gm/dL (3.5-5.7)
[2016-12-06 07:07] LABS: ANISOCYTOSIS 1+; BAND 6 % (0-10); BASOPHIL 0 % (0-1); EOSINOPHIL 2 % (1-3); HYPOCHROMIA 1+; LYMPHOCYTE 33 % (15-45); MONOCYTE 6 % (4-12); NEUTROPHILS 53 % (43-75); PLATELET ESTIMATE DECREASED (NORMAL); TOTAL CELLS COUNTED 100
[2016-12-06] MEDS: DOCUSATE SODIUM 100 MG CAPSULE PO SCH ×2 (09:08→20:56)
[2016-12-06] MEDS: OXYCODONE HCL 5 MG TABLET PO PRN (10:01)
--- NOTE | 2016-12-06 11:07 | PDOC43 ---
- Subjective Chief Complaint: Fever Patient awake and alert, without concerns. is at bedside changing ostomy. She has sangouis drainage mixed with stool. Denies pain, shortness of breath. Subjective: Reports Pain Tolerable, Reports Tolerating Diet Well, Reports Adequate Oral Intake, Reports Urinating Without Difficulty, Denies Bowel Movement, Denies Shortness of Breath, Denies Cough, Denies Chest Pain, Denies Abdominal Pain, Denies Nausea - Objective Vital Signs Temperature 98.3 F 12/06/16 07:01 Pulse Rate 82 12/06/16 07:01 Respiratory Rate 16 12/06/16 07:01 Blood Pressure 119/73 12/06/16 07:01 O2 Saturation by Pulse Oximetry 97 12/06/16 07:01 Oxygen Delivery Method Room Air Oxygen Flow Rate 0 Intake and Output 12/04/16 12/05/16 12/06/16 23:59 23:59 23:59 Intake Total 1679 3353 3442 Output Total 2925 2945 250 Balance -2913 649 9631 General: Alert, Oriented x3, Cooperative, Other (morbidly obese), No Acute Distress HEENT: Atraumatic, PERRLA, EOMI, Mucous membr. moist/pink Lungs: Clear to Auscultation Bilaterally, Normal Air Movement Cardiovascular: Regular Rate and Rhythm, Normal S1, Normal S2 Abdomen: Soft, Non-Distended, No Rigid, No Tenderness, No Rebounding Extremities: No Cyanosis, No Edema, No Tenderness Skin: Other (enterocutaneous fistula without erythema, sangious drainage mixed with stool) Neurological: Normal Speech Psych/Mental Status: Normal Mood Laboratory 12/06/16 05:30 12/06/16 05:30 12/06/16 12/06/16 12/06/16 07:54 07:43 05:30 RBC 3.37 L MCV 78.9 L MCH 23.4 L MCHC 29.7 L RDW 17.0 H Estimated GFR 57 L POC Capillary Glucose 292 H 140 H Calcium 8.0 L Total Bilirubin 1.9 H AST 55 H Alkaline Phosphatase 201 H Total Protein 6.3 L Albumin 2.4 L Globulin 3.9 H Albumin/Globulin Ratio 0.6 L 12/05/16 12/05/16 12/05/16 21:03 17:33 12:03 RBC MCV MCH MCHC RDW Estimated GFR POC Capillary Glucose 132 H 184 H 136 H Calcium Total Bilirubin AST Alkaline Phosphatase Total Protein Albumin Globulin Albumin/Globulin Ratio Current Medications: Current meds reviewed in EMR. - Problems: Assessment/Plan (1) Fever Qualifiers: Fever type: due to other condition Qualifier Code: (R50.81) Fever presenting with conditions classified elsewhere Status: AcuteAssessment/Plan : Fever with Sepsis, organism appears to be GNR obtained on blood culture, suspected from portacath (removed 12/04). Blood culture + from Cath, neg so far from peripheral source. Started on Rocephin for GNR 12/04; culture still pending as of 12/05. With development of abnormally low platelets, consider for severe sepsis, checked lactate- 1.1 (not elevated) this am. Continue monitor i/O BC with serratia marcescens, changed ABx to zosyn and stopped rocephin. Will continue to adjust based upon sensitivities. As source from portacath. Will Continue with daily BC until no growth before new line inserted to prevent further infection. Line required for TPN (2) Acute kidney injury superimposed on chronic kidney disease Status: AcuteAssessment/Plan: Acute kidney injury from sepsis, on CKD 3 from DM. Continue IVF. Resolved (3) Anemia Qualifiers: Anemia type: other cause Other causes of anemia: other cause, not classified Qualifier Code: (D64.89) Other specified anemias Status: AcuteAssessment/Plan: Marked microcytic anemia, low WBC noted, suspect acute on chronic illness. S/P PRBC x 3 units, Hb to 8.0 today. Still with low WBC, platelets continue to drop Will consider this representing severe sepsis, so recheck lactate. Will also hold enoxaparin, recheck in am. with microcytosis, check iron studies. Hgb stable, 7.9, and patient remains without shortness of breath, chest pain (4) Enterocutaneous fistula Status: AcuteAssessment/Plan: Contributing to electrolyte abnormality, has been on TPN for prolonged period, but now off. Consider for resumption when PICC line placed in a day or three. New line will be required for TPN once BC have no growth (5) Diabetes Qualifiers: Diabetes mellitus type: type 2 Diabetes mellitus complication status: with hyperglycemia Diabetes mellitus penitentiary insulin use: without long term care pharmacist use Qualifier Code: (E11.65) Type 2 diabetes mellitus with hyperglycemia Status: AcuteAssessment/Plan: BG 120-191; is on D5. Continue tx, on SS, CBGs. (6) Obesity Qualifiers: Obesity type: unspecified obesity type Obesity severity: morbid Qualifier Code: (E66.01) Morbid (severe) obesity due to excess calories Status: ChronicAssessment/Plan: BMI 53, playing a role in several parts of her condition, care. VTE Prophylaxis: Lovenox being stopped due to low platelets, continue mechanical tx, encourage activity. Disposition: Will need to check with DR Zhou at [facility] about further care rec's. addendum: Spoke with Dr Raphael at [facility] Suggested removal of cath Suggested consider replacement after a 1-3 days to clear Not necessarily needing to transfer at this time. Spoke with Dr Boyle, will see her later today about removal, consider for PICC line placement late this week Plan stop TPN for now, will given (increased) fluid replacement - D5 1/2NS with 20 mEq at 200 ml/hr
[2016-12-06] MEDS ORDERED: PIPERACILLIN SODIUM/TAZOBACTAM 3.375 G in NS 0.9% (MINI-BAG PLUS) 50 ML IV SCH (12:30)
[2016-12-06] MEDS: PANTOPRAZOLE SODIUM 40 MG VIAL IV SCH (12:47)
[2016-12-06] MEDS: ENEMA--adult 1 EACH PR PRN (15:55)
[2016-12-06] MEDS ORDERED: PIPERACILLIN-TAZO PREMIX BAG 3.375 G in Premix (D5W) 50 ml 1 EACH IV SCH (17:00)
[2016-12-06 17:20] LABS: PERFORMING LAB LHS
[2016-12-06] MEDS: MULTIVITAMINS 10 ML in SODIUM CHLORIDE 0.9% 1,000 ML IV SCH (17:41)
[2016-12-06] MEDS: PIPERACILLIN-TAZO PREMIX BAG 50 ML IV SCH ×2 (18:19→23:19)
[2016-12-07] MEDS: D5 1/2NS with 20 mEq KCL 1,000 ML IV SCH ×2 (04:52→08:54)
[2016-12-07] MEDS: PIPERACILLIN-TAZO PREMIX BAG 50 ML IV SCH ×4 (05:49→23:54)
[2016-12-07 05:51] LABS: ABSOLUTE NEUTROPHIL COUNT 1.8 K/mm3 (1.8-7.7); BASO % 0.5 % (0.2-1.0); EOS % 0.8 % (0.9-2.9); HEMATOCRIT 26.9 % (37.0-47.0); IMM NEUT # 0.1 K/mm3 (0-0.2); IMM NEUT% 1.9 % (0-1); LYMPH # 1.4 (1.0-4.8); LYMPH % 37.5 % (15-45); MEAN CELL VOLUME 78.9 fl (81.0-99.0); MEAN CORPUSCULAR HEMOGLOBIN 23.5 pg (27.0-31.0); MEAN CORPUSCULAR HGB CONC 29.7 g/dl (33.0-37.0); MEAN PLATELET VOLUME 11.5 fl (7.4-10.4); MONO # 0.4 (0.0-0.8); MONO % 10.6 % (4-12); NEUT % 48.7 % (43-75); PLATELET COUNT 105 K/mm3 (130-400); RED CELL DISTRIBUTION WIDTH 17.7 % (11.5-14.5)
[2016-12-07 06:11] LABS: CALCIUM 8.1 mg/dL (8.6-10.3)
--- NOTE | 2016-12-07 08:49 | PDOC43 ---
- Subjective Chief Complaint: Fever Patient doing well. She has some oral intake but low. Denies shortness of breath, usual abdominal discomfort. She feels improved with a bowel movement but is hesitant for another suppository. Subjective: Reports Pain Tolerable, Reports Tolerating Diet Well, Reports Urinating Without Difficulty, Reports Abdominal Pain, Denies Adequate Oral Intake, Denies Shortness of Breath, Denies Cough, Denies Chest Pain, Denies Nausea, Denies Vomiting - Objective Vital Signs Temperature 98.0 F 12/07/16 08:00 Pulse Rate 82 12/07/16 08:00 Respiratory Rate 20 12/07/16 08:00 Blood Pressure 144/82 12/07/16 08:00 O2 Saturation by Pulse Oximetry 98 12/07/16 08:00 Oxygen Delivery Method Nasal Cannula Oxygen Flow Rate 2 Intake and Output 12/05/16 12/06/16 12/07/16 23:59 23:59 23:59 Intake Total 3353 6775 2930 Output Total 2945 1950 1200 Balance 408 4825 1730 General: Alert, Oriented x3, Cooperative, Other (morbidly obese), No Acute Distress HEENT: Atraumatic, PERRLA, EOMI, Mucous membr. moist/pink Lungs: Clear to Auscultation Bilaterally, Normal Air Movement Cardiovascular: Regular Rate and Rhythm, Normal S1, Normal S2 Abdomen: Soft, Non-Distended, Other (stoma draining yellowish, dark fluid), No Rigid, No Tenderness, No Rebounding Extremities: No Cyanosis, No Edema, No Tenderness Peripheral Pulses: Posterior Tibialis (L): 1+, Posterior Tibialis (R): 1+ Neurological: Normal Speech Psych/Mental Status: Normal Mood Laboratory 12/07/16 05:30 12/07/16 05:30 12/07/16 12/06/16 12/06/16 05:30 20:55 18:20 RBC 3.41 L MCV 78.9 L MCH 23.5 L MCHC 29.7 L RDW 17.7 H Estimated GFR 57 L POC Capillary Glucose 152 H 140 H Calcium 8.1 L % Immature Granulocyt 1.9 H 12/06/16 12:38 RBC MCV MCH MCHC RDW Estimated GFR POC Capillary Glucose 123 H Calcium % Immature Granulocyt Current Medications: Current meds reviewed in EMR. - Problems: Assessment/Plan (1) Fever Qualifiers: Fever type: due to other condition Qualifier Code: (R50.81) Fever presenting with conditions classified elsewhere Status: AcuteAssessment/Plan : Fever with Sepsis, organism appears to be GNR obtained on blood culture, suspected from portacath (removed 12/04). Blood culture + from Cath, neg so far from peripheral source. Started on Rocephin for GNR 12/04; culture still pending as of 12/05. With development of abnormally low platelets, consider for severe sepsis, checked lactate- 1.1 (not elevated) this am. Continue monitor i/O BC with serratia marcescens, changed ABx to zosyn and stopped rocephin. Will continue to adjust based upon sensitivities. As source from portacath, will continue with daily BC until no growth before new line inserted to prevent further infection. Line required for TPN (2) Acute kidney injury superimposed on chronic kidney disease Status: AcuteAssessment/Plan: Acute kidney injury from sepsis, on CKD 3 from DM. Continue IVF. Resolved (3) Anemia Qualifiers: Anemia type: other cause Other causes of anemia: other cause, not classified Qualifier Code: (D64.89) Other specified anemias Status: AcuteAssessment/Plan: Marked microcytic anemia, low WBC noted, suspect acute on chronic illness. S/P PRBC x 3 units, Hb to 8.0 today. Still with low WBC, platelets continue to drop Will consider this representing severe sepsis, so recheck lactate. Will also hold enoxaparin, recheck in am. with microcytosis, check iron studies. Hgb stable, and patient remains without shortness of breath, chest pain (4) Enterocutaneous fistula Status: AcuteAssessment/Plan: Contributing to electrolyte abnormality, has been on TPN for prolonged period, but now off. Consider for resumption when PICC line placed in a day or three. New line will be required for TPN once BC have no growth (5) Diabetes Qualifiers: Diabetes mellitus type: type 2 Diabetes mellitus complication status: with hyperglycemia Diabetes mellitus assisted insulin use: without assisted use Qualifier Code: (E11.65) Type 2 diabetes mellitus with hyperglycemia Status: AcuteAssessment/Plan: BG 120-191; is on D5. Continue tx, on SS, CBGs. (6) Obesity Qualifiers: Obesity type: unspecified obesity type Obesity severity: morbid Qualifier Code: (E66.01) Morbid (severe) obesity due to excess calories Status: ChronicAssessment/Plan: BMI 53, playing a role in several parts of her condition, care. VTE Prophylaxis: Lovenox being stopped due to low platelets, continue mechanical tx, encourage activity. Disposition: Will need to check with DR Zhou at [facility] about further care rec's. addendum: Spoke with Dr Raphael at [facility] Suggested removal of cath Suggested consider replacement after a 1-3 days to clear Not necessarily needing to transfer at this time. Spoke with Dr Boyle, will see her later today about removal, consider for PICC line placement late this week Plan stop TPN for now, will given (increased) fluid replacement - D5 1/2NS with 20 mEq at 200 ml/hr
[2016-12-07] MEDS: D5NS 1,000 ML IV SCH ×2 (08:53→23:05)
[2016-12-07] MEDS: ONDANSETRON 4 MG/2ML 2 ML VIAL IV PRN (08:53)
[2016-12-07] MEDS: OXYCODONE HCL 5 MG TABLET PO PRN ×2 (08:55→17:39)
[2016-12-07] MEDS: MAGNESIUM HYDROXIDE 30 ML UDCUP PO PRN (08:55)
[2016-12-07] MEDS: DOCUSATE SODIUM 100 MG CAPSULE PO SCH ×2 (10:06→21:22)
[2016-12-07] MEDS ORDERED: PUMP TUBING ONE (12:20)
[2016-12-07] MEDS: PANTOPRAZOLE SODIUM 40 MG VIAL IV SCH (12:26)
[2016-12-07] MEDS: MULTIVITAMINS 10 ML in SODIUM CHLORIDE 0.9% 1,000 ML IV SCH (16:06)
[2016-12-08] MEDS: PIPERACILLIN-TAZO PREMIX BAG 50 ML IV SCH ×2 (05:43→12:33)
[2016-12-08 06:29] LABS: HEMATOCRIT 27.1 % (37.0-47.0); MEAN CELL VOLUME 78.6 fl (81.0-99.0); MEAN CORPUSCULAR HEMOGLOBIN 23.2 pg (27.0-31.0); MEAN CORPUSCULAR HGB CONC 29.5 g/dl (33.0-37.0); RED CELL DISTRIBUTION WIDTH 18.2 % (11.5-14.5)
[2016-12-08 06:36] LABS: CALCIUM 8.3 mg/dL (8.6-10.3)
[2016-12-08] MEDS: IBUPROFEN 200 MG TABLET PO PRN ×3 (07:56→19:33)
--- NOTE | 2016-12-08 11:54 | PDOC43 ---
- Subjective Chief Complaint: Fever, sepsis from infected port a cath Patient reports feeling well. Did some walking. Still a little constipated feeling. 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 - Objective Vital Signs Temperature 98.0 F 12/08/16 07:24 Pulse Rate 78 12/08/16 07:24 Respiratory Rate 18 12/08/16 07:24 Blood Pressure 126/71 12/08/16 07:24 O2 Saturation by Pulse Oximetry 98 12/08/16 07:24 Oxygen Delivery Method Room Air Oxygen Flow Rate 0 Vital Signs Last 12 Hours Temp Pulse Resp BP Pulse Ox 12/08/16 08:00 18 98 12/08/16 07:24 98.0 F 78 18 126/71 98 12/08/16 02:20 97.8 F 81 20 120/69 97 12/08/16 01:30 20 Intake and Output 12/06/16 12/07/16 12/08/16 23:59 23:59 23:59 Intake Total 6775 5372 1535 Output Total 1950 3575 1600 Balance 4825 1797 -65 General: Alert, Cooperative, No Acute Distress Lungs: Clear to Auscultation Bilaterally, Normal Air Movement Cardiovascular: Regular Rate and Rhythm Abdomen: Soft, Normal Bowel Sounds, Non-Distended, Other (fistula with ongoing drainage) Extremities: No Edema, No Tenderness Skin: Normal Color Neurological: Normal Speech Psych/Mental Status: Normal Affect, Normal Mood (appears to be feeling better) Laboratory 12/08/16 05:45 12/08/16 05:45 12/08/16 12/07/16 12/07/16 05:45 21:11 17:40 RBC 3.45 L MCV 78.6 L MCH 23.2 L MCHC 29.5 L RDW 18.2 H Estimated GFR 51 L POC Capillary Glucose 115 H 102 H Calcium 8.3 L 12/07/16 12:05 RBC MCV MCH MCHC RDW Estimated GFR POC Capillary Glucose 133 H Calcium Current Medications: Current meds reviewed in EMR. Active Medications Acetaminophen (Tylenol) 650 mg PO Q6H PRN PRN Reason: Pain or Temperature > 100.5 F Last Admin: 12/04/16 15:07 Dose: 650 mg Benzocaine/Menthol (Cepacol) 1 each PO PRN PRN PRN Reason: Sore Throat Bisacodyl (Dulcolax) 10 mg [place] DAILY PRN PRN Reason: Constipation Bisacodyl (Dulcolax) 5 mg PO DAILY PRN PRN Reason: Constipation Last Admin: 12/04/16 15:07 Dose: 5 mg Docusate Sodium (Colace) 100 mg PO BID [facility] Last Admin: 12/07/16 21:22 Dose: 100 mg Sodium Chloride (Sodium Chloride 0.9%) 500 mls @ 25 mls/hr IV .Q20H PRN PRN Reason: Blood Transfusion Last Admin: 12/03/16 04:39 Dose: 25 mls/hr Sodium Chloride (Sodium Chloride 0.9%) 100 mls @ 25 mls/hr IV PRN PRN PRN Reason: Flush Total Parenteral Nutrition (Total Parenteral) 2,240 mls @ 140 mls/hr IV DAILY@ 2100 [place] PRN Reason: Per Protocol Last Admin: 12/03/16 22:14 Dose: 140 mls/hr Sodium Chloride (Sodium Chloride 0.9%) 500 mls @ 25 mls/hr IV .Q20H PRN PRN Reason: Blood Transfusion Multivitamins/Minerals 10 ml/ (Sodium Chloride) 1,010 mls @ 42 mls/hr IV Q24H [facility] Last Admin: 12/07/16 16:06 Dose: 42 mls/hr Piperacillin/Tazobactam/Dextrose (Zosyn 3.375 G) 50 mls @ 100 mls/hr IV Q6HR [facility] Last Admin: 12/08/16 05:43 Dose: 100 mls/hr Dextrose/Sodium Chloride (D5ns) 1,000 mls @ 75 mls/hr IV .[id number] [facility] Last Admin: 12/07/16 23:05 Dose: 75 mls/hr Ibuprofen (Advil) 400 mg PO QID PRN PRN Reason: Pain or Temperature > 100.5 F Last Admin: 12/08/16 07:56 Dose: 400 mg Insulin Aspart (Novolog (Dose)) 0 units SUB-Q WM/BEDTIME PRN; Protocol PRN Reason: Blood Sugar > Last Admin: 12/05/16 17:40 Dose: 3 units Magnesium Hydroxide (Milk Of Magnesia) 30 ml PO DAILY PRN PRN Reason: Constipation Last Admin: 12/07/16 08:55 Dose: 30 ml Ondansetron HCl (Zofran) 4 mg IV Q4H PRN PRN Reason: Nausea/Vomiting Last Admin: 12/07/16 08:53 Dose: 4 mg Oxycodone HCl (Roxicodone) 5 - 10 mg PO Q3H PRN PRN Reason: Pain Last Admin: 12/07/16 17:39 Dose: 10 mg Pantoprazole Sodium (Protonix) 40 mg IV DAILY@1200 [place] Last Admin: 12/07/16 12:26 Dose: 40 mg Petrolatum/Paraffin/Mineral Oil (Blistex) 1 each TP PRN PRN PRN Reason: Dry and/or chapped lips Sodium Biphosphate/Sodium Phosphate (Fleet Adult Enema) 1 each [place] DAILY PRN PRN Reason: Constipation Last Admin: 12/06/16 15:55 Dose: 1 each Sodium Chloride (Normal Saline 10ml Flush) 10 - 50 ml IV PRN PRN PRN Reason: IV Flush Last Admin: 12/07/16 12:25 Dose: 10 ml Sodium Chloride (Normal Saline 10ml Flush) 10 ml IV Q8HR [facility] Last Admin: 12/08/16 00:12 Dose: Not Given - Problems: Assessment/Plan (1) Fever Qualifiers: Fever type: due to other condition Qualifier Code: (R50.81) Fever presenting with conditions classified elsewhere Status: AcuteAssessment/Plan : Fever with Sepsis, organism appears to be Serratia marcescens, suspected from portacath (removed 12/04). Blood culture + from Cath, last positive dated 12/03. Started on Rocephin for GNR 12/04, revised to Zosyn; Cultures suggest S to ceftriaxone, no other organisms so far, Will return to Rocephin Follow up blood cultures pending so far. Will plan to return to PICC or other central line once remaining negative. Anticipate review with Dr Zhou at [facility]. (2) Diabetes Qualifiers: Diabetes mellitus type: type 2 Diabetes mellitus complication status: with hyperglycemia Diabetes mellitus middle or intermediate school principal insulin use: without intermediate use Qualifier Code: (E11.65) Type 2 diabetes mellitus with hyperglycemia Status: AcuteAssessment/Plan: BG 97-133; is on D5 at 75/hr. Continue tx, on SS, CBGs. (3) Anemia Qualifiers: Anemia type: other cause Other causes of anemia: other cause, not classified Qualifier Code: (D64.89) Other specified anemias Status: AcuteAssessment/Plan: Marked microcytic anemia, low WBC noted, suspect acute on chronic illness. S/P PRBC x 3 units, Hb to 8.0, stable Improved WBC, platelets improved. Will consider this representing severe sepsis, so recheck lactate. Will also hold enoxaparin, recheck in am. with microcytosis, check iron studies. Hgb stable, and patient remains without shortness of breath, chest pain (4) Enterocutaneous fistula Status: AcuteAssessment/Plan: Contributing to electrolyte abnormality, has been on TPN for prolonged period, but now off. Consider for resumption; will check with Kilo about if PICC line ok. New line will be required for TPN once BC have no growth (5) Obesity Qualifiers: Obesity type: unspecified obesity type Obesity severity: morbid Qualifier Code: (E66.01) Morbid (severe) obesity due to excess calories Status: ChronicAssessment/Plan: BMI 54, playing a role in several parts of her condition, care. (6) Acute kidney injury superimposed on chronic kidney disease Status: AcuteAssessment/Plan: Acute kidney injury from sepsis, on CKD 3 from DM. Continue IVF. Resolved, Cr 1.1 (7) Low back pain Qualifiers: Chronicity: chronic Back pain laterality: unspecified Sciatica presence: unspecified whether sciatica present Qualifier Code: (M54.5) Low back pain Status: AcuteAssessment/Plan: Chronic hx. Encourage ambulation VTE Prophylaxis: Lovenox being stopped due to low platelets, continue mechanical tx, encourage activity. Disposition: Dr Stewart, covering 12/[address] Zhou would probably want a PICC line placed, so will schedule for tomorrow.
[2016-12-08] MEDS ORDERED: LIDOCAINE 1% (PRES FREE) 5 ML VIAL PF PRN (11:58)
[2016-12-08] MEDS ORDERED: LORAZEPAM 2 MG/ML 1ML SDV IV PRN (11:58)
[2016-12-08] MEDS: D5NS 1,000 ML IV SCH ×2 (12:25→13:29)
[2016-12-08] MEDS: DOCUSATE SODIUM 100 MG CAPSULE PO SCH ×2 (12:25→21:04)
[2016-12-08] MEDS: CEFTRIAXONE 1 GRAM DUPLEX 50 ML IV SCH (13:29)
[2016-12-08] MEDS: PANTOPRAZOLE SODIUM 40 MG VIAL IV SCH (13:30)
[2016-12-08] MEDS: ENEMA--adult 1 EACH PR PRN (13:39)
[2016-12-08] MEDS: ONDANSETRON 4 MG/2ML 2 ML VIAL IV PRN (13:54)
[2016-12-08] MEDS: MULTIVITAMINS 10 ML in SODIUM CHLORIDE 0.9% 1,000 ML IV SCH (15:14)
[2016-12-08] MEDS: OXYCODONE HCL 5 MG TABLET PO PRN (21:10)
[2016-12-09] MEDS: D5NS 1,000 ML IV SCH ×2 (04:05→14:04)
[2016-12-09] MEDS: OXYCODONE HCL 5 MG TABLET PO PRN (04:06)
[2016-12-09 07:41] VITALS: BP 140/80
[2016-12-09] MEDS: DOCUSATE SODIUM 100 MG CAPSULE PO SCH (09:14)
--- NOTE | 2016-12-09 10:19 | PDOC43 ---
- Subjective Chief Complaint: Fever, sepsis from infected port a cath Patient reports feeling well today. Was up and walking. No new complaints. Planning on PICC line today, is eager to go home. Had refused blood draw this am. - Objective Vital Signs Temperature 98.0 F 12/09/16 07:40 Pulse Rate 76 12/09/16 07:40 Respiratory Rate 18 12/09/16 08:00 Blood Pressure 140/80 12/09/16 07:40 O2 Saturation by Pulse Oximetry 97 12/09/16 08:00 Oxygen Delivery Method Room Air Oxygen Flow Rate 0 Vital Signs Last 12 Hours Temp Pulse Resp BP Pulse Ox 12/09/16 08:00 18 97 12/09/16 07:40 98.0 F 76 18 140/80 97 12/09/16 02:05 16 12/09/16 02:00 97 F 90 22 156/80 96 Intake and Output 12/07/16 12/08/16 12/09/16 23:59 23:59 23:59 Intake Total 5372 1535 1553 Output Total 3575 1600 1350 Balance 1797 -65 203 General: Alert, Cooperative, No Acute Distress HEENT: Atraumatic Lungs: Clear to Auscultation Bilaterally, Normal Air Movement Cardiovascular: Regular Rate and Rhythm Abdomen: Soft, Hypoactive Bowel Sounds (quiet. Ostomy bag on.) Extremities: Edema (trace, no pain.) Skin: Normal Color (sl pale, c/w anemia) Neurological: Normal Speech Psych/Mental Status: Normal Affect 12/09/16 12/08/16 12/08/16 08:15 18:21 11:30 POC Capillary Glucose 115 H 101 H 104 H Current Medications: Current meds reviewed in EMR. Active Medications Acetaminophen (Tylenol) 650 mg PO Q6H PRN PRN Reason: Pain or Temperature > 100.5 F Last Admin: 12/04/16 15:07 Dose: 650 mg Benzocaine/Menthol (Cepacol) 1 each PO PRN PRN PRN Reason: Sore Throat Bisacodyl (Dulcolax) 10 mg [place] DAILY PRN PRN Reason: Constipation Bisacodyl (Dulcolax) 5 mg PO DAILY PRN PRN Reason: Constipation Last Admin: 12/04/16 15:07 Dose: 5 mg Docusate Sodium (Colace) 100 mg PO BID [facility] Last Admin: 12/09/16 09:14 Dose: Not Given Sodium Chloride (Sodium Chloride 0.9%) 500 mls @ 25 mls/hr IV .Q20H PRN PRN Reason: Blood Transfusion Last Admin: 12/03/16 04:39 Dose: 25 mls/hr Sodium Chloride (Sodium Chloride 0.9%) 100 mls @ 25 mls/hr IV PRN PRN PRN Reason: Flush Total Parenteral Nutrition (Total Parenteral) 2,240 mls @ 140 mls/hr IV DAILY@ 2100 [place] PRN Reason: Per Protocol Last Admin: 12/03/16 22:14 Dose: 140 mls/hr Sodium Chloride (Sodium Chloride 0.9%) 500 mls @ 25 mls/hr IV .Q20H PRN PRN Reason: Blood Transfusion Multivitamins/Minerals 10 ml/ (Sodium Chloride) 1,010 mls @ 42 mls/hr IV Q24H [facility] Last Admin: 12/08/16 15:14 Dose: 42 mls/hr Dextrose/Sodium Chloride (D5ns) 1,000 mls @ 75 mls/hr IV .[id number] [facility] Last Admin: 12/09/16 04:05 Dose: 75 mls/hr Ceftriaxone Sodium/Dextrose (Rocephin 1 Gram Premix) 50 mls @ 100 mls/hr IV Q24H [facility] Last Admin: 12/08/16 13:29 Dose: 100 mls/hr Ibuprofen (Advil) 400 mg PO QID PRN PRN Reason: Pain or Temperature > 100.5 F Last Admin: 12/08/16 19:33 Dose: 400 mg Insulin Aspart (Novolog (Dose)) 0 units SUB-Q WM/BEDTIME PRN; Protocol PRN Reason: Blood Sugar > Last Admin: 12/05/16 17:40 Dose: 3 units Lidocaine HCl (Lidocaine 1% (Pres Free)) 2 - 5 ml PF X1 PRN PRN Reason: Pain from PICC line placement Lorazepam (Ativan) 0.5 - 1 mg IV X1 PRN PRN Reason: Anxiety during PICC Placement Magnesium Hydroxide (Milk Of Magnesia) 30 ml PO DAILY PRN PRN Reason: Constipation Last Admin: 12/07/16 08:55 Dose: 30 ml Ondansetron HCl (Zofran) 4 mg IV Q4H PRN PRN Reason: Nausea/Vomiting Last Admin: 12/08/16 13:54 Dose: 4 mg Oxycodone HCl (Roxicodone) 5 - 10 mg PO Q3H PRN PRN Reason: Pain Last Admin: 12/09/16 04:06 Dose: 5 mg Pantoprazole Sodium (Protonix) 40 mg IV DAILY@1200 [place] Last Admin: 12/08/16 13:30 Dose: 40 mg Petrolatum/Paraffin/Mineral Oil (Blistex) 1 each TP PRN PRN PRN Reason: Dry and/or chapped lips Sodium Biphosphate/Sodium Phosphate (Fleet Adult Enema) 1 each [place] DAILY PRN PRN Reason: Constipation Last Admin: 12/08/16 13:39 Dose: 1 each Sodium Chloride (Normal Saline 10ml Flush) 10 - 50 ml IV PRN PRN PRN Reason: IV Flush Last Admin: 12/08/16 13:54 Dose: 10 ml Sodium Chloride (Normal Saline 10ml Flush) 10 ml IV Q8HR [facility] Last Admin: 12/09/16 09:14 Dose: Not Given - Problems: Assessment/Plan (1) Fever Qualifiers: Fever type: due to other condition Qualifier Code: (R50.81) Fever presenting with conditions classified elsewhere Status: AcuteAssessment/Plan : Fever with Sepsis, organism appears to be Serratia marcescens, suspected from portacath (removed 12/04). Blood culture + from Cath, last positive dated 12/03. Started on Rocephin for GNR 12/04, revised to Zosyn; Cultures suggest S to ceftriaxone, no other organisms so far, Returned to Rocephin, anticipate tx for 7 more days (total 14 days). Follow up blood cultures negative so far. Plan PICC placement today. (2) Diabetes Qualifiers: Diabetes mellitus type: type 2 Diabetes mellitus complication status: with hyperglycemia Diabetes mellitus mcfp insulin use: without mcfp use Qualifier Code: (E11.65) Type 2 diabetes mellitus with hyperglycemia Status: AcuteAssessment/Plan: Anticipate resumption of regular regimen (3) Anemia Qualifiers: Anemia type: other cause Other causes of anemia: other cause, not classified Qualifier Code: (D64.89) Other specified anemias Status: AcuteAssessment/Plan: Marked microcytic anemia, iron deficiency documented. low WBC, low platelets now resolved., attributed to sepsis. S/P PRBC x 3 units, Hb to 8.0, stable Hgb stable, and patient remains without shortness of breath, chest pain (4) Enterocutaneous fistula Status: AcuteAssessment/Plan: Contributing to electrolyte abnormality, has been on TPN for prolonged period, plan to resume, follow up with surgery (Dr Zhou). (5) Obesity Qualifiers: Obesity type: unspecified obesity type Obesity severity: morbid Qualifier Code: (E66.01) Morbid (severe) obesity due to excess calories Status: ChronicAssessment/Plan: BMI 54, playing a role in several parts of her condition, care. (6) Acute kidney injury superimposed on chronic kidney disease Status: AcuteAssessment/Plan: Acute kidney injury from sepsis, on CKD 3 from DM. Continue IVF. Resolved, Cr 1.1 (7) Low back pain Qualifiers: Chronicity: chronic Back pain laterality: unspecified Sciatica presence: unspecified whether sciatica present Qualifier Code: (M54.5) Low back pain Status: ChronicAssessment/Plan: Chronic hx. Encourage ambulation VTE Prophylaxis Contraindications: Adverse drug reaction, Complication of medical care VTE Prophylaxis: Lovenox being stopped due to low platelets (suspect sepsis related), continue mechanical tx, encourage activity. Disposition: Dr Stewart, covering 12/[address] Zhou would probably want a PICC line placed, so planned for 12/09. Anticipate DC to home.
[2016-12-09] MEDS ORDERED: IRON SUCROSE COMPLEX 200 MG in SODIUM CHLORIDE 0.9% 100 ML IV ONE (10:30)
--- NOTE | 2016-12-09 11:32 | RAD ---
12/09/2016 11:26 AM CXR FOR PLACEMENT/LINE or TUBE History: Left-sided PICC placement. Question of catheter tip location. Comparison: 12/03/2016 Findings: Single AP view of the chest is obtained. The lungs are clear with out effusion or pneumothorax. The cardiomediastinal silhouette is unremarkable.. The osseous structures are intact.. Left-sided PICC terminates within the proximal most aspect of the right atrium. IMPRESSION: No acute intrathoracic process. Left-sided PICC as above. Findings were called to Jihan the PICC nurse at approximately 1128 hours on 12/09/2016.
[2016-12-09] MEDS ORDERED: PUMP TUBING ONE (11:46)
[2016-12-09] MEDS: PANTOPRAZOLE SODIUM 40 MG VIAL IV SCH (12:46)
[2016-12-09] MEDS: CEFTRIAXONE 1 GRAM DUPLEX 50 ML IV SCH (12:54)
[2016-12-09] MEDS: IBUPROFEN 200 MG TABLET PO PRN (13:36)
--- NOTE | 2016-12-09 14:47 | DS ---
FLAKO MENDOZA [id number] DATE OF ADMISSION: 12/03/2016 DATE OF DISCHARGE: Anticipated 12/09/2016. DISCHARGE DIAGNOSES: 1. Infected central line with Serratia marcescens, sensitive to ceftriaxone. 2. Chronic enterocutaneous fistula. 3. Iron-deficiency anemia. 4. Sepsis due to infected indwelling Port-A-Cath, now resolved. 5. Morbid obesity. 6. Diabetes mellitus. 7. Hypertension. 8. Leukopenia, and thrombocytopenia associated with sepsis now improved. 9. Chronic low back pain. 10. Acute kidney injury, resolved associated with chronic kidney disease. Creatinine 1.1 at baseline. 11. Constipation partially associated with chronic opioid use. 12. Suspected spinal stenosis at several levels. 13. Atherosclerosis. REASON FOR ADMISSION: The patient is a 61-year-old female with a complex medical history complaining of severe low back pain symptoms along with feeling shaky, and noted to febrile up to 101 degrees. She was noted to be having anemia with hemoglobin of 6.3 which was microcytic, and with the unexplained fever was referred to Hospitalist service for admission. Cultures of the blood were obtained from her peripheral venous source, and a Port-A-Cath which she has had in the right subclavian for four months. Admission labs showed a white blood cell count of 4.5, a hemoglobin 6.3, MCV of 75, and platelet count of 200. Sedimentation rate was 54. INR was 1.37. Lactate is 1.5. Sodium is 138, potassium 4.5, BUN 34, creatinine 1.3, glucose 126, calcium 8.6, and lipase 17. C-reactive protein is 17.3. Patient had imaging including a lumbar spine CT showing limited exam with multiple levels of suspected stenosis and neural encroachment. Chest x-ray performed sowed no acute cardiopulmonary process, but cardiomegaly without evidence of failure, or infiltrate. With fevers, and abdominal and back pain so she underwent CT of the abdomen and pelvis showing stable midline ventral ostomy, adjacent soft tissue changes. No evidence of bowel obstruction, bibasilar atelectasis, fatty infiltration of the liver, prior cholecystectomy, atherosclerosis, retroaortic level renal vein, and spondylolysis changes of the lumbar spine. Patient's total parenteral nutrition was continued and patient started on Zosyn 12/03/2016. She continued to be febrile and on 12/04/[address] Walt Boyle saw her, and felt that the Port-A-Cath could be the cause of infection as her blood culture from the port became positive. Patient underwent Port-A-Cath removal 12/04/2016. Patient's fevers improved and she had temperature to 100.3 only on 1 occasion after removal. Culture results returned showing Serratia marcescens and sensitivity profile suggestive sensitivity to ceftriaxone so the patient was switched from Zosyn to ceftriaxone. She was not given oral antibiotics because of enterocutaneous fistula felt to be likely to not allow adequate absorption. Patient developed low white blood cell count during her stay with a Alex of 2.7 on 12/03/2016, and it had improved to 5.4 on 12/08/2016. She had a platelet count which reached a Alex of 95 on 12/05/2016, and improved to 111 by 12/08/2016. Her hemoglobin started at 6.3, and after transfusion it went to 8.7, but declined again to 7.1 by 12/04/2016, so she received an additional unit of blood and was 8.1, and remained stable after that. Her creatinine was 1.3 on admission. It recached a high of 1.4 on 12/04/2016 and then trended down to 1.1 by 12/08/2016. Her patient's sugars were treated with sliding scale insulin, and she generally maintained good control and was below 200 for the entire stay, and for the last 3 days her blood sugar did not exceed 133. Patient's follow up blood cultures from 12/06/2016, 12/07/2106, and 12/08/2016 all remained negative at this time, and so on 12/09/2016 a peripherally inserted central catheter line was replaced to allow her to have IV access as she dependent on total parenteral nutrition. Patient is anticipated to get a peripherally inserted central catheter line, and anticipated to be discharged later today. Patient also received multivitamins while she was here, and a dose of Venofer 200 mg IV times 1 while here for her microcytic anemia. DISCHARGE MEDICATIONS: Her discharge medications are anticipated to be: 1. Atorvastatin 20 mg by mouth daily. 2. Ceftriaxone 1 g every 24 hours for 7 more days to bring total antibiotic duration to 14 days. 3. Losartan 50 mg daily. 4. Metformin 850 by mouth twice a day with meals. 5. Metoprolol succinate 100 mg by mouth twice a day. 6. Fleet enema SD for constipation. 7. Oxycodone 5 to 10 mg by mouth every 4 hours as needed with suggestion to try to avoid if this could contribute to constipation. 8. She is to resume her previous total parenteral nutrition. This will not be able to be mixed at this time, and her home dose is . So she will have to resume this tomorrow, 12/10/2016. DISCHARGE FOLLOW-UP: The patient is requested to follow up with Dr. Zhou regrading desirability of revision of her access. ACTIVITY: As tolerated. She is ambulating and appears to feel well. VITAL SIGNS: At the time of discharge temperature is 98, pulse 76, blood pressure 140/80, respirations 18, 97% saturation on room air. Her labs on 12/08/2016 showed a white count of 5.4, hemoglobin 8, and platelets 111. Sodium is 138, potassium 4.6, chloride 110, BUN 11, creatinine 1.1, glucose 97, last glucose was 115. Patient declined to get her labs for 12/09/2016. The patient's catheter tip showed greater than 15 colony forming units of Gram negative bacilli, identification to follow. Patient is anticipated resuming total parenteral nutrition on 12/10/2016. MINDY/blanche cc: Dr. Zhou, trauma surgeon at [facility]. Dr. Essie De La Paz at [facility]
== END 2016-12-09 14:25 | disposition home or self-care (01) | DRG 314 ==
LOC: ED 16:28 → ICU 12-03 02:43 → OBSVTOIN 12-03 07:32 → MS 12-05 11:50
PROVIDERS: ADMIT Family Medicine; ATTEND Family Medicine
PROC: 0JPVXXZ Removal of Tunneled Vascular Access Device from Upper Extremity Subcutaneous Tissue and Fascia, External Approach (ICD-10-PCS; principal; 2016-12-04)
DX: T80.219A Unspecified infection due to central venous catheter, initial encounter (principal); A41.53 Sepsis due to Serratia; T85.79XA Infection and inflammatory reaction due to other internal prosthetic devices, implants and grafts, initial encounter; N17.9 Acute kidney failure, unspecified; K63.2 Fistula of intestine; Z68.43 Body mass index [BMI] 50.0-59.9, adult; D50.8 Other iron deficiency anemias; E66.01 Morbid (severe) obesity due to excess calories; D72.819 Decreased white blood cell count, unspecified; G89.29 Other chronic pain; M54.5 Low back pain; K59.00 Constipation, unspecified; I70.90 Unspecified atherosclerosis; M48.06 Spinal stenosis, lumbar region; Z79.84 Long term (current) use of oral hypoglycemic drugs; E78.5 Hyperlipidemia, unspecified; K43.2 Incisional hernia without obstruction or gangrene; R00.0 Tachycardia, unspecified; E11.22 Type 2 diabetes mellitus with diabetic chronic kidney disease; I12.9 Hypertensive chronic kidney disease with stage 1 through stage 4 chronic kidney disease, or unspecified chronic kidney disease; N18.3 Chronic kidney disease, stage 3 (moderate)